=== PATIENT | female | born 1950 | race Caucasian/White ===

== ENCOUNTER → 2019-12-23 12:47 | Outpatient (CLI) | payer MEDICARE, OTHER, SELFPAY ==
[2019-12-23 14:02] LABS: Add Manual Diff / Slide Review NO; Basophils Absolute Auto 0 /uL (0-100); Basophils Percent Auto 0.5 % (0-2); Eosinophils Absolute Auto 100 /uL (0-450); Eosinophils Percent Auto 1.6 % (2-4); Hematocrit 37.5 % (36-46); Hemoglobin 12.1 g/dL (12.0-16.0); Lymphocytes Absolute Auto 1800 /uL (1100-4500); Lymphocytes Percent Auto 24.5 % (25-40); Mean Corpuscular HGB Conc 32.3 % (30-36); Mean Corpuscular Hemoglobin 27.1 PG (26-34); Monocytes Absolute Auto 500 /uL (0-900); Monocytes Percent Auto 6.8 % (3-14); Neutrophils Absolute Auto 4800 /uL (1500-7000); Neutrophils Percent Auto 66.6 % (50-75); Platelet Count 234 X10^3/uL (150-400); Red Blood Cell Count 4.46 X10^6/uL (4.0-5.2); Red Cell Distribution Width 15.9 % (11.6-14.8); White Blood Cell Count 7.2 X10^3/uL (4.5-11.0)
[2019-12-23 14:21] LABS: BUN Creatinine Ratio 18.2 (6-22); Blood Urea Nitrogen 12 mg/dL (7-17); Carbon Dioxide 29 mmol/L (22-32); Chloride 104 mmol/L (98-107); Estimated Glomerular Filt Rate > 60.0 mL/min (>60); Glucose 93 mg/dL (80-110); HEMOLYSIS < 15 (0-50); Sodium 138 mmol/L (137-145)
[2019-12-23 15:07] LABS: Vitamin B12 744 pg/mL (239-931)
== END ==
PROVIDERS: PCP Family Medicine; Referring Provider Family Medicine; Visit Provider Family Medicine
DX: I10 Essential (primary) hypertension (principal); R53.83 Other fatigue
CPT/HCPCS: 36415; 80048; 82607; 85025

== ENCOUNTER → 2020-10-26 15:01 | Outpatient (CLI) | payer MEDICARE, SELFPAY ==
--- NOTE | 2020-10-26 15:04 | DI.US.S_ITS ---
PROCEDURE: US SOFT TISSUE HEAD AND NECK INDICATIONS: LEFT NECK SWELLING TECHNIQUE: Real-time scanning was performed of the neck region of interest, with image documentation. COMPARISON: None. FINDINGS: No left neck mass, fluid collection or lymphadenopathy. IMPRESSION: No sonographically visible left neck mass. If there is continued clinical concern for neck mass, consider contrast-enhanced neck CT scan. Dictated by: Piotr PERLA Interpreted: Devora Patel MD on 10/26/2020 at 16:28 Transcribed by: COLTEN on 10/26/2020 at 16:29 Approved by: Dwayne Dejesus M.D. on 10/29/2020 at 14:38
== END ==
PROVIDERS: PCP Family Medicine; Referring Provider Family Medicine; Visit Provider Family Medicine
DX: R22.1 Localized swelling, mass and lump, neck (principal)
CPT/HCPCS: 76536

== ENCOUNTER → 2021-05-11 14:31 | Outpatient (CLI) | payer MEDICARE, SELFPAY | PROVIDERS: PCP Family Medicine; Referring Provider Family Medicine; Visit Provider Family Medicine | DX: M85.89 Other specified disorders of bone density and structure, multiple sites (principal); Z78.0 Asymptomatic menopausal state | CPT/HCPCS: 77080 ==

== ENCOUNTER → 2021-10-20 13:55 | Outpatient (CLI) | payer MEDICARE, SELFPAY | PROVIDERS: PCP Family Medicine; Referring Provider Family Medicine; Visit Provider Family Medicine | DX: I10 Essential (primary) hypertension (principal); E03.9 Hypothyroidism, unspecified; Z79.01 Long term (current) use of anticoagulants; Z86.79 Personal history of other diseases of the circulatory system | CPT/HCPCS: 93005 ==

== ENCOUNTER → 2022-06-20 12:00 | Outpatient (CLI) | payer MEDICARE, SELFPAY ==
[2022-06-20 12:53] LABS: Add Manual Diff / Slide Review NO; Basophils Absolute Auto 0 /uL (0-100); Basophils Percent Auto 0.5 % (0-2); Eosinophils Absolute Auto 200 /uL (0-450); Eosinophils Percent Auto 2.7 % (2-4); Hematocrit 36.9 % (36-46); Hemoglobin 12.3 g/dL (12.0-16.0); Lymphocytes Absolute Auto 1500 /uL (1100-4500); Lymphocytes Percent Auto 24.2 % (25-40); Mean Corpuscular HGB Conc 33.2 % (30-36); Mean Corpuscular Hemoglobin 27.7 PG (26-34); Mean Corpuscular Volume 83.3 fL (80-100); Monocytes Absolute Auto 400 /uL (0-900); Monocytes Percent Auto 6.8 % (3-14); Neutrophils Absolute Auto 4100 /uL (1500-7000); Neutrophils Percent Auto 65.8 % (50-75); Platelet Count 200 X10^3/uL (150-400); Red Blood Cell Count 4.43 X10^6/uL (4.0-5.2); Red Cell Distribution Width 16.7 % (11.6-14.8); White Blood Cell Count 6.2 X10^3/uL (4.5-11.0)
[2022-06-20 13:24] LABS: Alanine Aminotransferase 18 IU/L (<35); Albumin 4.4 g/dL (3.5-5.0); Albumin Globulin Ratio 1.7 (1.0-2.8); Alkaline Phosphatase 77 U/L (38-126); Aspartate Aminotransferase 23 IU/L (14-36); BUN Creatinine Ratio 20.5 (6-22); Bilirubin Total 0.5 mg/dL (0.2-1.3); Blood Urea Nitrogen 17 mg/dL (7-17); C-Reactive Protein Quant 0.8 mg/dL (<1.0); Calcium 9.1 mg/dL (8.4-10.2); Carbon Dioxide 28 mmol/L (22-32); Chloride 103 mmol/L (98-107); Cholesterol 185 mg/dL (140-199); Estimated Glomerular Filt Rate > 60 mL/min (>60); Globulin 2.6 g/dL (1.7-4.1); Glucose 86 mg/dL (80-110); HDL Cholesterol 66 mg/dL (40-60); HEMOLYSIS < 15 (0-50); LDL Cholesterol Calculated 102 mg/dL (<100); Potassium 4.1 mmol/L (3.4-5.1); Sodium 139 mmol/L (137-145); Triglycerides 86 mg/dL (35-150)
[2022-06-20 13:27] LABS: Erythrocyte Sedimentation Rate 10 MM/HR (0-20)
[2022-06-20 13:49] LABS: TSH w/ Reflex to FT4 0.41 uIU/mL (0.47-4.68)
[2022-06-20 14:15] LABS: Free T4, Direct Thyroxine 1.53 ng/dL (0.78-2.19)
[2022-06-23 19:16] LABS: ANA Screen, IFA Positive (.)
== END ==
PROVIDERS: PCP Family Medicine; Referring Provider Family Medicine; Visit Provider Family Medicine
DX: E03.9 Hypothyroidism, unspecified (principal); E78.5 Hyperlipidemia, unspecified; I10 Essential (primary) hypertension; L93.0 Discoid lupus erythematosus; M79.7 Fibromyalgia; R22.1 Localized swelling, mass and lump, neck; R53.83 Other fatigue; R76.0 Raised antibody titer; R68.89 Other general symptoms and signs
CPT/HCPCS: 36415; 80053; 80061; 84439; 84443; 85025; 85651; 86038; 86140

== ENCOUNTER → 2022-06-26 13:54 | Outpatient (CLI) | payer MEDICARE, SELFPAY ==
--- NOTE | 2022-06-26 13:55 | DI.CT.S_ITS ---
PROCEDURE: CT HEAD/BRAIN WO/W CON INDICATIONS: Worsening pain and swelling TECHNIQUE: 4.5 mm thick angled axial sections acquired from the foramen magnum to the vertex both before and after the administration of intravenous contrast, with coronal and sagittal reformats. For radiation dose reduction, the following was used: automated exposure control, adjustment of mA and/or kV according to patient size. COMPARISON: [facility], CT, CT SOFT TISSUE NECK W CON, 06/26/2022, 14:11. FINDINGS: Image quality: Excellent. CSF spaces: Basal cisterns are patent. No extra-axial fluid collections. Ventricles are symmetric in size and shape. Brain: No midline shift. No intracranial bleeds or masses. No abnormal intracranial enhancement. There is cerebral volume loss for age. There is periventricular white matter chronic small vessel ischemic change. There is intracranial internal carotid artery atherosclerosis. Skull and face: Calvarium and visualized facial bones appear intact, without suspicious lesions. Sinuses: Visualized sinuses and mastoids are clear. IMPRESSION: 1. No acute intracranial abnormalities. Dictated by: Daryl Holder M.D. on 06/26/2022 at 14:45 Approved by: Daryl Holder M.D. on 06/26/2022 at 14:46
--- NOTE | 2022-06-26 13:55 | DI.CT.S_ITS ---
PROCEDURE: CT SOFT TISSUE NECK W CON INDICATIONS: worsening pain and swelling TECHNIQUE: After the administration of intravenous contrast, 3.0 mm axial sections acquired from the sella to the aortic arch. 3 mm thick coronal and sagittal reformats were generated. For radiation dose reduction, the following was used: automated exposure control. COMPARISON: None. FINDINGS: Skull Base: The visualized intracranial contents, skull, and orbits are unremarkable. Visualized paranasal sinuses are clear. Pharynx and Larynx: The nasopharyngeal airway is patent and midline. Parapharyngeal soft tissues including palatine tonsils and base of the tongue are normal. Retropharyngeal space unremarkable. Normal appearance of the false and true vocal cords. Muscles and Fascial Planes: Fascial planes are well maintained. No abscess or mass lesion. Lymph Nodes: No evidence of adenopathy. Vasculature: Unremarkable. Submandibular and Parotid Glands: Normal in size and attenuation. Thyroid: Unremarkable. No enlarged or calcified nodules. Bones: No acute fracture. No osteolytic or blastic lesion is evident. Normal bone mineralization. Lung Apices: The visualized lung apices are clear. IMPRESSION: 1. Normal CT of the neck Approved by: Otf Ojeda M.D. on 06/26/2022 at 14:23
== END ==
PROVIDERS: PCP Family Medicine; Referring Provider Family Medicine; Visit Provider Family Medicine
DX: G44.52 New daily persistent headache (NDPH) (principal); I65.29 Occlusion and stenosis of unspecified carotid artery; R22.1 Localized swelling, mass and lump, neck; J34.89 Other specified disorders of nose and nasal sinuses; R53.83 Other fatigue
CPT/HCPCS: 70470; 70491

== ENCOUNTER → 2022-08-08 15:54 | Outpatient (CLI) | payer MEDICARE, SELFPAY ==
[2022-08-08 16:46] LABS: INR 2.9 (0.9-1.3); Prothrombin Time 34.1 SECONDS (10.1-12.7)
[2022-08-08 17:12] LABS: Free T3, Triiodothyronine Free 3.61 pg/mL (2.77-5.27); Free T4, Direct Thyroxine 1.78 ng/dL (0.78-2.19)
[2022-08-08 17:25] LABS: Thyroid Stimulating Hormone 0.114 uIU/mL (0.47-4.68)
[2022-08-09 21:37] LABS: Anti Thyroglobulin Antibody <1.0 IU/mL (0.0-0.9); Thyroid Peroxidase Antibodies <9 IU/mL (0-34)
== END ==
PROVIDERS: PCP Family Medicine; Referring Provider Family Medicine; Visit Provider Family Medicine
DX: Z86.79 Personal history of other diseases of the circulatory system (principal); E03.9 Hypothyroidism, unspecified; Z79.01 Long term (current) use of anticoagulants; R76.8 Other specified abnormal immunological findings in serum
CPT/HCPCS: 36415; 84439; 84443; 84481; 85610; 86376; 86800

== ENCOUNTER → 2022-12-14 09:43 | Outpatient (CLI) | payer MEDICARE, SELFPAY ==
[2022-12-14 12:38] LABS: Free T3, Triiodothyronine Free 3.41 pg/mL (2.77-5.27)
[2022-12-14 12:52] LABS: TSH w/ Reflex to FT4 1.02 uIU/mL (0.47-4.68); Thyroid Stimulating Hormone 1.02 uIU/mL (0.47-4.68)
== END ==
PROVIDERS: PCP Family Medicine; Referring Provider Family Medicine; Visit Provider Family Medicine
DX: E03.9 Hypothyroidism, unspecified (principal); R79.89 Other specified abnormal findings of blood chemistry
CPT/HCPCS: 36415; 84443; 84481

== ENCOUNTER → 2023-06-27 13:52 | Outpatient (CLI) | payer MEDICARE, SELFPAY ==
[2023-06-27 15:39] LABS: TSH w/ Reflex to FT4 1.21 uIU/mL (0.47-4.68)
== END ==
PROVIDERS: PCP Family Medicine; Referring Provider Family Medicine; Visit Provider Family Medicine
DX: E03.9 Hypothyroidism, unspecified (principal)
CPT/HCPCS: 36415; 84443

== ENCOUNTER → 2023-10-24 11:35 | Outpatient (CLI) | payer MEDICARE, SELFPAY ==
--- NOTE | 2023-10-24 11:37 | DI.RAD.S_ITS ---
PROCEDURE: XR FOOT RT MIN 3V INDICATIONS: foot pain TECHNIQUE: 3 views of the foot were acquired. COMPARISON: None. FINDINGS: Bones: No fractures or dislocations. Osteoarthritic changes throughout right foot are noted most notably at 2nd through 5th TMT joints. No suspicious bony lesions. Soft tissues: No tibiotalar joint effusion. Achilles tendon appears normal. IMPRESSION: Osteoarthritis throughout right foot as above. No acute fracture or dislocation. Dictated by: Cortez Brenner M.D. on 10/24/2023 at 16:37 Approved by: Cortez Brenner M.D. on 10/24/2023 at 16:37
== END ==
PROVIDERS: PCP Family Medicine; Referring Provider Family Medicine; Visit Provider Family Medicine
DX: M19.071 Primary osteoarthritis, right ankle and foot (principal); M79.671 Pain in right foot
CPT/HCPCS: 73630

== ENCOUNTER → 2024-02-14 15:50 | Outpatient (CLI) | payer MEDICARE, SELFPAY ==
[2024-02-14 17:26] LABS: Add Manual Diff / Slide Review NO; Basophils Absolute Auto 0 /uL (0-100); Basophils Percent Auto 0.4 % (0-2); Eosinophils Absolute Auto 200 /uL (0-450); Eosinophils Percent Auto 2.4 % (2-4); Hematocrit 34.4 % (36-46); Hemoglobin 11.2 g/dL (12.0-16.0); Lymphocytes Absolute Auto 1600 /uL (1100-4500); Lymphocytes Percent Auto 25.4 % (25-40); Mean Corpuscular HGB Conc 32.6 % (30-36); Mean Corpuscular Hemoglobin 26.9 PG (26-34); Mean Corpuscular Volume 82.3 fL (80-100); Monocytes Absolute Auto 500 /uL (0-900); Monocytes Percent Auto 7.2 % (3-14); Neutrophils Absolute Auto 4200 /uL (1500-7000); Neutrophils Percent Auto 64.6 % (50-75); Platelet Count 217 X10^3/uL (150-400); Red Blood Cell Count 4.17 X10^6/uL (4.0-5.2); Red Cell Distribution Width 16.5 % (11.6-14.8); White Blood Cell Count 6.5 X10^3/uL (4.5-11.0)
[2024-02-14 18:13] LABS: C-Reactive Protein Quant < 0.5 mg/dL (<1.0)
== END ==
LOC: LAB 15:51
PROVIDERS: PCP Family Medicine; Referring Provider Family Medicine; Visit Provider Family Medicine
DX: R10.31 Right lower quadrant pain (principal)
CPT/HCPCS: 36415; 85025; 86140

== ENCOUNTER → 2024-02-22 10:22 | Outpatient (CLI) | payer MEDICARE, SELFPAY ==
[2024-02-22 10:53] LABS: BUN Creatinine Ratio 13.2 (6-22); Blood Urea Nitrogen 12 mg/dL (7-17); Estimated Glomerular Filt Rate > 60 mL/min (>60)
== END ==
PROVIDERS: PCP Family Medicine; Referring Provider Family Medicine; Visit Provider Family Medicine
DX: R10.31 Right lower quadrant pain (principal)
CPT/HCPCS: 36415; 82565; 84520

== ENCOUNTER → 2024-02-22 12:16 | Outpatient (CLI) | payer MEDICARE, SELFPAY ==
--- NOTE | 2024-02-22 12:18 | DI.CT.S_ITS ---
PROCEDURE: CT ABDOMEN PELVIS W CON INDICATIONS: low rt abd pain TECHNIQUE: After the administration of intravenous contrast, axial sections acquired from the lung bases to the pubic symphysis. Coronal and sagittal reformats were performed. For radiation dose reduction, the following was used: automated exposure control, adjustment of mA and/or kV according to patient size. COMPARISON: [facility], CT, CT SOFT TISSUE NECK W CON, 06/26/2022, 14:11. FINDINGS: Image quality: Diagnostic. Lower Chest: Left lower lobe spiculated pulmonary nodule measuring 2.2 cm, (2/5). Large hiatal hernia. ABDOMEN: Liver: Hypodense focus in the left lobe of the liver, (4/37). Gallbladder: No radiopaque gallstones or wall thickening. Biliary ducts: No biliary dilation. Pancreas: No ductal dilation. Spleen: Size is within normal limits. Adrenal Glands: No adrenal nodules. Kidneys and Ureters: No hydronephrosis. Probable small kidney stones bilaterally. No solid mass. No complex renal cystic lesion which requires follow up. Stomach and Bowel: Extensive diverticulosis. No diverticulitis. Normal appendix. No small bowel obstruction. Large hiatal hernia. Peritoneum: No abnormal intraperitoneal fluid. No free air. Ventral Wall: No significant ventral hernia. Abdominal Nodes: No retroperitoneal or mesenteric adenopathy by size criteria. Vessels: Aorta and inferior vena cava are normal in size. PELVIS: Pelvic Organs: Device in the upper vagina. Pessary like. Anteverted uterus. Bladder: No bladder wall thickening, accounting for underdistention. Pelvic Nodes: No enlarged lymph nodes. Miscellaneous: No inguinal hernias are seen. Bones: No aggressive osseous abnormality. L2 intraosseous hemangioma. Multilevel Schmorl's nodes. Minimal height loss at T10. IMPRESSION: 1. Left lower lobe spiculated pulmonary nodule measuring 2.2 cm. Concerning for lung cancer. -Recommend CT chest with IV contrast. 2. Hypodense focus in the left liver. Indeterminate. This could represent a benign cyst or hemangioma. Recommend comparison with prior imaging if available. This could be definitively characterized with liver MRI or multiphase liver CT. 3. No adenopathy. 4. No diverticulitis. No free fluid. Large hiatal hernia. Small nonobstructing kidney stones. Results called to office of Dr. Fuller. Dictated by: Juan Ramon Gill M.D. on 02/22/2024 at 15:22 Approved by: Juan Ramon Gill M.D. on 02/22/2024 at 15:36
== END ==
PROVIDERS: PCP Family Medicine; Referring Provider Family Medicine; Visit Provider Family Medicine
DX: K57.90 Diverticulosis of intestine, part unspecified, without perforation or abscess without bleeding (principal); R91.1 Solitary pulmonary nodule; K44.9 Diaphragmatic hernia without obstruction or gangrene; N20.0 Calculus of kidney; R10.31 Right lower quadrant pain
CPT/HCPCS: 36415; 74177; 82565; 84520; Q9967

== ENCOUNTER → 2024-02-26 09:24 | Outpatient (CLI) | payer MEDICARE, SELFPAY ==
--- NOTE | 2024-02-26 09:27 | DI.CT.S_ITS ---
PROCEDURE: CT CHEST W CON INDICATIONS: incidental lung mass noted on abd/pel CT 02/21 TECHNIQUE: After the administration of intravenous contrast, 5 mm thick sections acquired from the pulmonary apices to the posterior costophrenic angles. 1 mm axial lung, 5 mm thick coronal and sagittal reformats and 7 mm axial MIP were acquired. For radiation dose reduction, the following was used: automated exposure control, adjustment of mA and/or kV according to patient size. COMPARISON: [facility], CT, CT ABDOMEN PELVIS W CON, 02/22/2024, 13:54. FINDINGS: Image quality: Diagnostic. Lower Neck: No enlarged lymph nodes. Thyroid: No thyroid nodules which require sonographic follow up, per consensus guidelines. Axillae: No enlarged lymph nodes. Chest Wall: Unremarkable. Bones: Vertebral hemangiomas in T2 and T5. Lungs and Pleura: No pneumothorax or pleural effusions. Spiculated nodule in the left lower lobe measuring 2.2 x 1.5 centimeter (series 3, image 130). Few solid pulmonary nodules are present within the lungs. Index lesion measures 4 millimeters in the right upper lobe (series 3, image 118). Suspected juxtapleural nodule in the right lung base measuring 7 x 5 millimeter. Heart: Heart size is normal. No pericardial effusion. Thoracic Vessels: The aorta and pulmonary arteries demonstrate normal size. Mediastinum and Veronica: No enlarged lymph nodes. Esophagus: No wall thickening. Large hiatal hernia. Upper Abdomen: Probable 7 millimeter cyst in segment 3 of the liver. Calcified splenic granuloma. Mild nodular thickening of the left adrenal gland period IMPRESSION: Spiculated nodule in the left lower lobe measuring 2.2 x 1.5 centimeters, concerning for primary lung malignancy. This would be amenable to CT-guided biopsy. No mediastinal adenopathy. A few solid pulmonary micro nodules of the lungs, low suspicion for ipsilateral and contralateral metastasis. Probable hepatic cyst measuring 7 millimeters. Attention on follow-up. Other chronic findings as above. Dictated by: Petar Galarza M.D. on 02/26/2024 at 11:30 Approved by: Petar Galarza M.D. on 02/26/2024 at 11:33
== END ==
PROVIDERS: PCP Family Medicine; Referring Provider Family Medicine; Visit Provider Family Medicine
DX: R91.8 Other nonspecific abnormal finding of lung field (principal); K44.9 Diaphragmatic hernia without obstruction or gangrene
CPT/HCPCS: 71260; Q9967